=== PATIENT | male | born 1955 | race Caucasian/White ===

== ENCOUNTER 2024-05-21 19:44 | Observation (INO) ==
[2024-05-21] MEDS ORDERED: IOPAMIDOL 100 ML BOTTLE IV ONE (19:45)
[2024-05-21] MEDS: fentaNYL 100 MCG/2 ML VIAL IV ONE (20:02)
[2024-05-21] MEDS: ONDANSETRON 4 MG/2 ML VIAL IV ONE (20:02)
[2024-05-21 20:32] LABS: Basophils # (Auto) 0.05 K/mcL (0.00-0.30); Basophils % (Auto) 0.6 % (0.0-2.0); Eosinophils # (Auto) 0.24 K/mcL (0.00-0.70); Eosinophils % (Auto) 2.8 % (0.0-7.0); Hematocrit 41.9 % (40.1-51.0); Hemoglobin 13.9 g/dL (13.7-17.5); Lymphocytes # (Auto) 3.75 K/mcL (1.50-4.80); Lymphocytes % (Auto) 43.1 % (15.5-49.0); Mean Cell Volume 93.3 fL (80.0-100.0); Mean Corpuscular HGB Conc 33.2 g/dL (31.0-36.0); Mean Platelet Volume 10.9 fL (8.8-12.5); Monocytes # (Auto) 0.89 K/mcL (0.10-0.90); Monocytes % (Auto) 10.2 % (1.0-12.0); Neutrophils % (Auto) 42.8 % (38.0-78.0); Platelet Count 249 K/mcL (140-440); RBC 4.49 M/mcL (4.63-6.08); Red Cell Distribution Width 13.6 % (11.5-14.5); WBC 8.7 K/mcL (4.5-11.0)
[2024-05-21] MEDS: HYDROmorphone 1 MG/ML SYRINGE IV ONE ×2 (20:35→21:58)
[2024-05-21 20:48] LABS: INR 0.9 (0.9-1.1); Prothrombin Time 12.1 sec (11.9-14.5)
[2024-05-21 20:52] LABS: ALT/SGPT 33 U/L (<40); AST/SGOT 33 U/L (<40); Albumin 4.5 gm/dL (3.2-5.2); Albumin/Globulin Ratio 1.7 (1.0-2.3); Alkaline Phosphatase 54 U/L (39-117); Bilirubin,Total 0.3 mg/dL (0.1-1.0); Blood Urea Nitrogen 25 mg/dL (8-23); Calcium 9.4 mg/dL (8.6-10.4); Carbon Dioxide 21 mmol/L (22-30); Chloride 100 mmol/L (96-108); Globulin 2.7 gm/dL (2.2-3.7); Glomerular Filtration Rate 68; Glucose 121 mg/dL (70-105); Potassium 3.7 mmol/L (3.3-5.1); Sodium 137 mmol/L (133-145)
[2024-05-21] MEDS: KETOROLAC 30 MG/ML VIAL IV ONE (22:17)
[2024-05-21] MEDS: HYDROmorphone 0.5 MG/0.5 ML SYRINGE IV ONE (22:37)
[2024-05-21] MEDS ORDERED: ONDANSETRON 4 MG/2 ML VIAL IV PRN (22:41)
[2024-05-21] MEDS ORDERED: hydrALAZINE 20 MG/ML VIAL IV PRN (22:52)
[2024-05-21] MEDS: CYCLOBENZAPRINE 10 MG TABLET PO PRN (23:18)
[2024-05-21] MEDS: HYDROmorphone 0.5 MG/0.5 ML SYRINGE IV PRN (23:18)
[2024-05-21] MEDS: oxyCODONE IR 5 MG TABLET PO PRN (23:18)
[2024-05-21] MEDS: 0.9 % SODIUM CHLORIDE 1,000 ML IV SCH (23:38)
[2024-05-22] MEDS: ACETAMINOPHEN 1,000 MG/100 ML BAG IV PRN (00:38)
[2024-05-22] MEDS: KETOROLAC 15 MG/ML VIAL IV SCH (03:09)
[2024-05-22] MEDS: HYDROmorphone 0.5 MG/0.5 ML SYRINGE ONE ×2 (03:11)
[2024-05-22] MEDS: ACETAMINOPHEN 1,000 MG/100 ML BAG IV ONE (03:16)
[2024-05-22 03:59] LABS: Basophils # (Auto) 0.02 K/mcL (0.00-0.30); Basophils % (Auto) 0.2 % (0.0-2.0); Eosinophils # (Auto) 0 K/mcL (0.00-0.70); Eosinophils % (Auto) 0 % (0.0-7.0); Hematocrit 41.3 % (40.1-51.0); Hemoglobin 13.7 g/dL (13.7-17.5); Lymphocytes # (Auto) 0.72 K/mcL (1.50-4.80); Mean Cell Volume 93.7 fL (80.0-100.0); Mean Corpuscular HGB Conc 33.2 g/dL (31.0-36.0); Mean Platelet Volume 10.4 fL (8.8-12.5); Monocytes # (Auto) 0.84 K/mcL (0.10-0.90); Monocytes % (Auto) 8.2 % (1.0-12.0); Neutrophils % (Auto) 84.5 % (38.0-78.0); Platelet Count 203 K/mcL (140-440); RBC 4.41 M/mcL (4.63-6.08); Red Cell Distribution Width 13.8 % (11.5-14.5); WBC 10.3 K/mcL (4.5-11.0)
[2024-05-22 04:18] LABS: ALT/SGPT 33 U/L (<40); AST/SGOT 55 U/L (<40); Albumin 4.3 gm/dL (3.2-5.2); Albumin/Globulin Ratio 1.7 (1.0-2.3); Alkaline Phosphatase 50 U/L (39-117); Bilirubin,Direct < 0.2 mg/dL (0-0.3); Bilirubin,Total 0.4 mg/dL (0.1-1.0); Blood Urea Nitrogen 25 mg/dL (8-23); Carbon Dioxide 23 mmol/L (22-30); Chloride 101 mmol/L (96-108); Globulin 2.6 gm/dL (2.2-3.7); Glomerular Filtration Rate 87; Glucose 139 mg/dL (70-105); Lactate Dehydrogenase 244 U/L (135-225); Phosphorous 4.9 mg/dL (2.5-4.5); Potassium 4.6 mmol/L (3.3-5.1); Sodium 136 mmol/L (133-145); Triglycerides 99 mg/dL (<150); Uric Acid 6.9 mg/dL (2.5-8.0)
[2024-05-22] MEDS: 0.9 % SODIUM CHLORIDE 10 ML SYRINGE IV SCH (05:04)
[2024-05-22] MEDS: PANTOPRAZOLE 40 MG TABLET PO SCH (07:50)
[2024-05-22] MEDS: METOPROLOL TARTRATE 25 MG TABLET PO SCH (09:56)
[2024-05-22] MEDS: LIDOCAINE 4% TOP PATCH TOPICAL SCH (09:57)
[2024-05-22] MEDS: SENNOSIDES 1 TABLET PO PRN (19:02)
[2024-05-22] MEDS: DOCUSATE SODIUM 100 MG CAPSULE PO SCH (20:39)
[2024-05-23 06:45] LABS: Basophils # (Auto) 0.03 K/mcL (0.00-0.30); Basophils % (Auto) 0.4 % (0.0-2.0); Eosinophils # (Auto) 0.24 K/mcL (0.00-0.70); Eosinophils % (Auto) 3.3 % (0.0-7.0); Hemoglobin 11.6 g/dL (13.7-17.5); Lymphocytes # (Auto) 1.68 K/mcL (1.50-4.80); Lymphocytes % (Auto) 22.9 % (15.5-49.0); Mean Corpuscular HGB Conc 32.2 g/dL (31.0-36.0); Monocytes # (Auto) 0.81 K/mcL (0.10-0.90); Neutrophils % (Auto) 62.1 % (38.0-78.0); Platelet Count 179 K/mcL (140-440); RBC 3.71 M/mcL (4.63-6.08); Red Cell Distribution Width 14.1 % (11.5-14.5); WBC 7.3 K/mcL (4.5-11.0)
[2024-05-23 07:21] LABS: ALT/SGPT 28 U/L (<40); AST/SGOT 52 U/L (<40); Albumin 3.9 gm/dL (3.2-5.2); Albumin/Globulin Ratio 1.8 (1.0-2.3); Alkaline Phosphatase 44 U/L (39-117); Bilirubin,Direct < 0.2 mg/dL (0-0.3); Bilirubin,Total 0.6 mg/dL (0.1-1.0); Blood Urea Nitrogen 25 mg/dL (8-23); Calcium 8.6 mg/dL (8.6-10.4); Carbon Dioxide 26 mmol/L (22-30); Chloride 101 mmol/L (96-108); Globulin 2.2 gm/dL (2.2-3.7); Glomerular Filtration Rate 68; Glucose 96 mg/dL (70-105); Lactate Dehydrogenase 202 U/L (135-225); Potassium 3.9 mmol/L (3.3-5.1); Sodium 135 mmol/L (133-145); Triglycerides 150 mg/dL (<150); Uric Acid 6.4 mg/dL (2.5-8.0)
[2024-05-23] MEDS: POLYETHYLENE GLYCOL 3350 17 GM PACKET PO PRN (09:49)
[2024-05-23] MEDS: PNEUMOCOCCAL 23-VAL P-SAC VAC 0.5 ML SYRINGE IM ONE (09:52)
== END 2024-05-23 14:05 | disposition home or self-care (01) ==
LOC: ED 19:44 → ICU 19:44
PROVIDERS: ADMIT Family Medicine Adult Medicine; ATTEND Family Medicine Adult Medicine